=== PATIENT | female | born 1970 | race Two or more races ===

== ENCOUNTER 2022-09-02 17:59 | Emergency (ER) | payer MEDICAID ==
[~2022-09-02] VITALS: Ht 160 cm; Wt 73.6 kg
[2022-09-02 18:35] VITALS: BP 150/85
[2022-09-02] MEDS ORDERED: DIPH25CA83 PO (19:38)
[2022-09-02] MEDS ORDERED: ERYT1OIN6 EACHEYE (19:38)
== END 2022-09-02 19:42 | disposition home or self-care (01) ==
LOC: ER 18:00
DX: H10.9 Unspecified conjunctivitis (principal); Z79.899 Other long term (current) drug therapy
CPT/HCPCS: 99283

== ENCOUNTER 2023-03-02 09:49 | Emergency (ER) | payer MEDICAID ==
[~2023-03-02] VITALS: Ht 160 cm; Wt 78.6 kg
[~2023-03-02 09:49] MED LIST: DIPH25CA83 PO
[2023-03-02 12:57] VITALS: BP 148/83; PULSE 67; RESP 16; TEMP 97.2; O2SAT 98
[2023-03-02] MEDS ORDERED: ERYT1OIN6 EACHEYE (13:25)
== END 2023-03-02 13:36 | disposition home or self-care (01) ==
LOC: ER 09:49
DX: H10.9 Unspecified conjunctivitis (principal); Z79.899 Other long term (current) drug therapy
CPT/HCPCS: 99283